=== PATIENT | male | born 1955 | race Caucasian/White ===

== ENCOUNTER 2018-08-13 11:35 | Day surgery (SDC) | payer MEDICARE, BC ==
--- NOTE | 2018-08-09 17:04 | HP ---
PATIENT: DAYNA ROBERTS MEDICAL RECORD: [id number] ACCOUNT: [id number] LOCATION:[facility] : 53 ADMISSION DATE: 08/13/18 PCP: ERICK MANRIQUEZ MD HISTORY AND PHYSICAL EXAMINATION HISTORY: Mr. Roberts is a 63-year-old male. He is having problems with nasal obstruction, has been refractory to medical management. He has been admitted for septoplasty and turbinate reduction. PAST MEDICAL HISTORY: Includes diabetes, peptic ulcer disease, hypertension, coronary artery disease, reactive airway disease, and reflux. PAST SURGICAL HISTORY: Includes umbilical hernia in 2003 and atrial fibrillation in 2011. SOCIAL HISTORY: Quit smoking 7 years ago. CURRENT MEDICATIONS: Albuterol, atenolol, atorvastatin, Symbicort, citalopram, digoxin, glipizide, metformin, propafenone, Spiriva, warfarin, lisinopril, Xopenex, and oxygen. ALLERGIES: No known drug allergies. PHYSICAL EXAMINATION: GENERAL: He is healthy appearing and developmentally normal. He is on oxygen 24 hours a day. FACE: Normal and symmetric. No lesions. EYES: Sclerae and conjunctivae are normal. EARS: Canals and TMs are normal. NOSE: He has septal deviation with caudal septum in the left nostril. He has severe tip collapse and nasal valve collapse as well. ORAL CAVITY AND OROPHARYNX: Tongue protrudes in the midline. No trismus. NECK: No masses. No adenopathy. CHEST: Clear. CARDIOVASCULAR: Regular rate and rhythm. No murmur. EXTREMITIES: Normal. IMPRESSION: Nasal obstruction with multiple problems causing issues with his CPAP as well. PLAN: Septoplasty, bilateral inferior turbinate reduction, repair of nasal valve collapse, and skin excision to improve the tip collapse. 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 [address] [place] [address]
[~2018-08-13] VITALS: Ht 182.9 cm; Wt 114.8 kg
[~2018-08-13 11:35] MED LIST: ALBUTEROL SULF8.5 GM INH; ALBUTEROL0.63 MG/3 INH; CELEXA20 MG PO; COUMADIN10 MG PO; GLUCOPHAGE1000 MG PO; GLUCOTROL 5 MG T5 MG PO; LANOXIN125 MCG PO; LIPITOR40 MG PO; LISINOPRIL20 MG PO; RYTHMOL 225 MG225 MG PO; SPIRIVA18 MCG INH; SYMBICORT 16010.2 GM INH; TENORMIN25 MG PO
[2018-08-13 11:54] LABS: BASOPHILS 0.4 % (0-2); EOSINOPHILS 2.3 % (0-7); HEMATOCRIT 39.5 % (42.0-54.0); IMMATURE GRANULOCYTES 1.6 % (0-5); LYMPHOCYTES 28.7 % (15-50); MCH 31.3 pg (26.0-34.0); MCHC 35.4 g/dL (31.0-37.0); MCV 88.2 fL (80.0-100.0); MEAN PLATELET VOLUME 10.8 fL (7.4-10.4); MONOCYTES 9.9 % (2-11); NEUTROPHILS 57.1 % (40-80); PLATELET COUNT 180 10x3/uL (130-400); RBC 4.48 10x6/uL (4.20-6.10); RDW 13.6 % (11.5-14.5)
[2018-08-13 12:06] LABS: INR 0.99 (0.85-1.17); PROTIME 12.6 SECONDS (11.6-15.0)
[2018-08-13 12:17] LABS: CALC OSMOLALITY 286 mosm/kg (275-300); CALCIUM 9.6 mg/dL (8.5-10.1); CHLORIDE - SERUM 98 mmol/L (98-107); CREATININE - SERUM 0.9 mg/dL (0.6-1.3); GLUCOSE 333 mg/dL (74-106); POTASSIUM - SERUM 4.8 mmol/L (3.5-5.1); SODIUM 136 mmol/L (136-145); UREA NITROGEN 17 mg/dL (7-18); eGFR NON AFRICAN AMERICAN 90 mL/min (90-120)
[2018-08-13 12:48] VITALS: BP 128/78; Ht 182.9 cm; Wt 114.8 kg
--- NOTE | 2018-08-13 15:30 | NUR ---
ARMS ACROSS CHEST AND PAPOOSEDJOSEY.
--- NOTE | 2018-08-13 17:39 | NUR ---
1735 FL DIET SERVED
--- NOTE | 2018-08-15 12:58 | OP ---
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 PROCEDURES: Septoplasty, bilateral inferior turbinate reduction, correction of nasal valve collapse and tip droop. SURGEON: Leana Oh MD ANESTHESIA: General orotracheal. BLOOD LOSS: Less than 5 cc. SPECIMENS: Some portion of the turbinate and septum. COMPLICATIONS: None. PACKING: Morton splints bilaterally. DISPOSITION: Recovery stable. DESCRIPTION OF PROCEDURE: He was brought to the operating room and placed in supine position, sedated and intubated by anesthesia. The eyes were taped. Prepped and draped in usual fashion for nasal surgery. Using a headlight and nasal speculum, the nose was examined. On the right side of the nose, he had a severe septal deviation to the left and a large inferior turbinate. On the left side, the caudal septum was folded out in the nasal septum totally obstructing at about the caudal 8-10 mm of septum was horizontal in the coronal plane and totally obstructing the left side of the nose. Both sides of the nose were injected the septum, floor of the nose, inferior turbinates, nasal dorsum, lateral nasal wall were injected with a total of 2 mL of 1% lidocaine with 1:100,000 epinephrine along 27-gauge needle. Afrin pledgets were packed in both sides of the nose. They were then removed. The left side a Valentín incision was made. Ipsilateral mucoperichondrial flap was elevated and the previously fractured caudal septum was isolated. Some incisions were used. It was from the rest of the septum. A pocket was created with scissors in between the medial crura of the lower lateral cartilages and that cartilage was placed in that pocket to give some tip support. It was sutured in place with 5-0 chromic sutures and then some relaxing incisions were made and the bony cartilaginous junction was disarticulated to the septum and this allowed the septum to fall back to the midline. The inferior turbinates were medialized and a Gruenwald was used to remove the inferior redundant portion of the turbinate. Suction cautery on a setting of 25 was used to stop any bleeding and both outfractured with a [place] elevator. A J-shaped incisions were made in the lateral nasal valve area removing mucosa and suction cautery was used to stop any bleeding and then this was sutured closed with 4-0 chromic to open up the nasal aperture and stiffen the lateral nasal wall. A horizontal elliptical incision was made over the nasal dorsum in deep skin crease to remove over a OPERATIVE REPORT [id number] DAYNA ROBERTS centimeter of a vertical skin from the nasal dorsum. Skin was undermined inferiorly and superiorly and then this was closed with interrupted subcutaneous 5-0 Vicryl and then 5-0 Prolene was used to close the skin. Steri-Strips and Mastisol were applied. This lifted up the nasal tip droop significantly that along with the increased support from the cartilage and the columella. Nose was examined. Using headlight and nasal speculum, both sides were suction with #7 suction. There was a good nasal airway on both sides, good nostril openings. Two Morton splints were placed in the nose with mupirocin ointment and sutured to the anterior membranous septum with 2-0 Prolene on a Colin needle. He was awakened, extubated, and transported to recovery in good condition. No complications. 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
== END 2018-08-13 18:30 | disposition home or self-care (01) ==
LOC: D.PAN 11:35
PROVIDERS: Anesthesiology; ATTEND Otolaryngology
DX: J34.2 Deviated nasal septum (principal); J34.3 Hypertrophy of nasal turbinates; L71.1 Rhinophyma